=== PATIENT | female | born 1980 | race American Indian/Alaskan Native ===

== ENCOUNTER 2017-08-21 00:35 | Emergency (ER) | payer SELFPAY ==
[2017-08-21] MEDS ORDERED: TYLENOL PO STA (01:03)
[2017-08-21] MEDS ORDERED: NACL 0.9% 500 ML 500 ML IV ONE (01:03)
[2017-08-21 01:36] LABS: Bilirubin,Urine NEG (Negative); Blood,Urine NEG (Negative); Ketones,Urine NEG (Negative); Leukocyte Esterase,Urine TR (Negative); Mucus,Urine FEW /HPF; Nitrite,Urine NEG (Negative); Protein,Urine <15 mg/dL mg/dL (Negative); Urobilinogen,Urine < 2.0 mg/dL (<2.0)
--- NOTE | 2017-08-21 01:51 | Emergency Department Report ---
HPI - General Chief Complaint: High BP Time Seen by Provider: 08/21/17 01:15 - HPI HPI: This is a 37-year-old after AA female who presents to the emergency department by EMS with a complaint of chills, sore throat, dizziness/lightheadedness. When she began feeling lightheaded she called EMS and they assessed her and found her to have a blood pressure of about 245/100. She denies any history of hypertension. She denies any cough, chest pain, shortness of breath, dysuria, vaginal bleeding or discharge. She did not take anything for her symptoms and was not given anything for her symptoms prior to presentation. No recent travel or sick contacts at home. She does not currently have a primary care doctor if she just moved up here from [place]. She denies any tobacco or illicit drug use or abuse. She does admit that she drinks a large amount of caffeinated products and often eats processed and/or fast foods with high salt content. ED Past Medical Hx - Past Medical History Hx Asthma: Yes - Surgical History Past Surgical History?: No - Medications Home Medications: Home Medications Medication Instructions Recorded Confirmed Last Taken Type Amoxicillin/Potassium Clav 1 each PO BID #14 tablet 08/21/17 Unknown Rx [Augmentin 875-125 Tablet] ED Review of Systems ROS: Stated complaint: HIGH BLOOD PRESSURE Other details as noted in HPI Comment: All other systems reviewed and negative Constitutional: chills, fever (subjective but confirmed here) Eyes: denies: eye pain, eye discharge, vision change ENT: throat pain. denies: ear pain Respiratory: denies: cough, shortness of breath Cardiovascular: denies: chest pain, palpitations Gastrointestinal: denies: abdominal pain, nausea, diarrhea Genitourinary: denies: urgency, dysuria, discharge Musculoskeletal: myalgia. denies: joint swelling Skin: denies: rash, lesions Neurological: other (dizziness/lightheadedness). denies: headache Physical Exam - Physical Exam Vital Signs: Vital Signs 08/21/17 08/21/17 08/21/17 00:37 00:46 01:18 Temperature 102.0 F H 102 F H Pulse Rate 133 H 133 H Respiratory 18 18 18 Rate Blood Pressure 188/92 188/92 O2 Sat by Pulse 99 99 Oximetry Physical Exam: GENERAL: The patient is well-developed well-nourished. HENT: Normocephalic. Atraumatic. Patient has moist mucous membranes. Patient has some bilateral tonsillar hypertrophy and some erythema. No obvious exudates. EYES: Extraocular motions are intact. Pupils equal reactive to light bilaterally. No nystagmus. NECK: Supple. Trachea is midline. CHEST/LUNGS: Clear to auscultation. There is no respiratory distress noted. HEART/CARDIOVASCULAR: Regular. There is mild to moderate tachycardia. There is no gallop rub or murmur. ABDOMEN: Abdomen is soft, nontender. Patient has normal bowel sounds. There is no abdominal distention. SKIN: Skin is hot but dry. NEURO: The patient is awake, alert, and oriented. The patient is cooperative. The patient has no focal neurologic deficits. The patient has normal speech. Cranial nerves II through XII grossly intact. MUSCULOSKELETAL: There is no tenderness or deformity. There is no limitation range of motion. There is no evidence of acute injury. ED Course Vital Signs 08/21/17 08/21/17 08/21/17 00:37 00:46 01:18 Temperature 102.0 F H 102 F H Pulse Rate 133 H 133 H Respiratory 18 18 18 Rate Blood Pressure 188/92 188/92 O2 Sat by Pulse 99 99 Oximetry ED Medical Decision Making - Lab Data Result diagrams: 08/21/17 01:20 08/21/17 01:20 - EKG Data -: EKG Interpreted by [facility] EKG shows normal: sinus rhythm, axis, intervals, QRS complexes, ST-T waves Rate: tachycardia (122 bpm) - EKG Data When compared to previous EKG there are: previous EKG unavailable Interpretation: other (Sinus Tach at 122 bpm) - Radiology Data Radiology results: image reviewed interpreted by me: Chest x-ray does not show any acute process. There are no pleural effusions, obvious pneumonia and there is no pneumothorax. - Medical Decision Making [id number] female presents with fever, tachycardia, sore throat and some dizziness and close to near syncope. She was given tylenol and once we saw no renal insufficiency she was given toradol. She was given IVF resuscitation. Her labs were mostly unremarkable except for a very mild leukocytosis of 11,000 and she had a positive rapid strep screen. She was given a dose of clindamycin and will go home with antibiotics. The other issue for this patient was that she presented with EMS and to the department with very elevated blood pressure. She admits to drinking a large amount of caffeinated products and does not have a diet where she restricts her salt intake. She was given 1 dose of labetalol and her blood pressure come down a good fit even before she was given this antihypertensive and now her blood pressure is in the normal range. It is possible that the patient's hypertension is secondary to the fact that she has a fever and strep pharyngitis. Since there is some room for her to make dietary and/or lifestyle changes, I will not start her on a blood pressure medication at this moment. She is going to keep a blood pressure log. She is going to make dietary and/or lifestyle changes and she is going to follow up with a primary care physician. At this point her vital signs are really improved without significant tachycardia and she is currently afebrile. She says she is feeling better and asking for discharge home. She will return to the ER with any worsening of her symptoms, intractable fever, or any acute distress. - Differential Diagnosis Strep throat, influenza, pneumonia, dysrythmia Critical Care Time: No Critical care attestation.: If time is entered above; I have spent that time in minutes in the direct care of this critically ill patient, excluding procedure time. ED Disposition Clinical Impression: Strep pharyngitis, Dizziness Hypertension Qualifiers: Hypertension type: essential hypertension Qualified Code(s): I10 - Essential ( primary) hypertension Fever Qualifiers: Fever type: unspecified Qualified Code(s): R50.9 - Fever, unspecified Disposition: DC-01 TO HOME OR SELFCARE Is pt being admited?: No Condition: Stable Instructions: Hypertension (ED), Strep Throat (ED), Dizziness (ED), Lightheadedness (ED) Additional Instructions: Please follow up with a primary care physician in the next few days. Return to the emergency Department with any worsening of your symptoms or any acute distress. He can use Tylenol every 4 hours and ibuprofen every 6 hours, using weight-based dosing, as needed for fever or discomfort. I recommend that you stay out of work for a few days until you are without any fever for 24 hours without having to use Tylenol or NSAIDs or at least until you have had a few days of antibiotics in her system. Do not share any food or drink and practice lots of handwashing with antibacterial soap. Prescriptions: Amoxicillin/Potassium Clav [Augmentin 875-125 Tablet] 1 each PO BID #14 tablet Referrals: PRIMARY CARE, [Primary Care Provider] - 3-5 Days JEWEL ODONNELL MD [Staff Physician] - 3-5 Days [facility] [Outside] - 3-5 Days Time of Disposition: 05:49
[2017-08-21 02:01] LABS: Eosinophils % (Auto) 0.4 % (0.0-4.3); Hematocrit 34.1 % (30.3-42.9); Mean Corpuscular HGB Conc 32 % (30-34); Mean Corpuscular Volume 79 fl (79-97); Platelet Count 295 K/mm3 (140-440); Red Blood Count 4.32 M/mm3 (3.65-5.03); Red Cell Distribution Width 15.9 % (13.2-15.2); White Blood Count 11.2 K/mm3 (4.5-11.0)
[2017-08-21 02:04] LABS: Alanine Aminotransferase 20 units/L (7-56); Albumin 4.3 g/dL (3.9-5); Albumin/Globulin Ratio 1.2 %; Alkaline Phosphatase 114 units/L (35-129); Anion Gap 19 mmol/L; BUN/Creatinine Ratio 14; Blood Urea Nitrogen 10 mg/dL (7-17); Carbon Dioxide 25 mmol/L (22-30); Chloride 97.9 mmol/L (98-107); Glucose 110 mg/dL (65-100); Potassium 3.6 mmol/L (3.6-5.0); Sodium 138 mmol/L (137-145); Total Protein 7.9 g/dL (6.3-8.2)
[2017-08-21 02:20] LABS: Mean Corpuscular Hemoglobin 26 pg (28-32)
[2017-08-21 02:26] LABS: INR 0.91 (0.87-1.13)
[2017-08-21] MEDS ORDERED: TORADOL IV ONE (02:36)
[2017-08-21] MEDS ORDERED: NORMODYNE IV ONE (02:36)
[2017-08-21] MEDS ORDERED: NACL 0.9% 1000 ML 1,000 ML IV ONE (03:36)
[2017-08-21] MEDS ORDERED: CLEOCIN 600 MG/50 mL 600 MG/50 ML BAG IV ONE (05:03)
[2017-08-21] MEDS ORDERED: NACL 0.9% 250ML 250 ML ONE (05:14)
[2017-08-21] MEDS ORDERED: NACL 0.9% 250ML 250 ML IV ONE (05:15)
[2017-08-21 06:16] VITALS: BP 119/53
--- NOTE | 2017-08-21 07:24 | XRay Report ---
AP CHEST: HISTORY: Sepsis AP view of the chest demonstrates a normal mediastinal and cardiac contour with clear lungs and normal bony and soft tissue structures. IMPRESSION: Unremarkable AP chest.
== END 2017-08-21 06:17 | disposition home or self-care (01) ==
LOC: ED 00:35
DX: J02.0 Streptococcal pharyngitis (principal); I10 Essential (primary) hypertension; R42 Dizziness and giddiness; R50.9 Fever, unspecified; J45.909 Unspecified asthma, uncomplicated
CPT/HCPCS: 36415; 71010; 80053; 81001; 82140; 82805; 84703; 85025; 85610; 87040; 87086; 87400; 87430; 93005; 93010; 96361; 96365; 96375; 99285; J1885; J7030; J7040; J7050